=== PATIENT | male | born 1980 | race Hispanic/Latino ===

== ENCOUNTER 2025-09-01 15:23 | Emergency (ER) | payer SELFPAY ==
[~2025-09-01] VITALS: Ht 182.9 cm; Wt 112.5 kg
--- NOTE | 2025-09-01 15:33 | ERN ---
ED Note History of Present Illness Stated Complaint: ABDOMINAL PAIN Chief Complaint: Abdominal Pain Time Seen by MD: 15:28 Dictation: IS A 45-YEAR-OLD MALE COMING IN TODAY WITH COMPLAINTS OF EPIGASTRIC PAIN, BURNING FOR THE LAST 5-6 DAYS. HE STATES THERE WAS NO CHANGE WHEN HE EATS FOOD. NO FEVER NO CHILLS NO CHEST PAIN NO BACK PAIN. STATES HE WAS SEEN BY A DOCTOR ON A TELE CALL SEVERAL DAYS AGO AND WAS PRESCRIBED OMEPRAZOLE AND ZOFRAN WHICH IS NOT HELP. HE DENIES ANY ALCOHOL ABUSE NO HISTORY OF PANCREATITIS DIVERTICULITIS GASTROENTERITIS OR GERD. NOT SEEN HIS PRIMARY CARE DOCTOR. Allergies: Coded Allergies: No Known Drug Allergies (Unverified Allergy, Unknown, 09/01/25) Past Medical History RN Note Reviewed/Agreed w/PFSH: Yes Review of System Dictation CONSTITUTIONAL: NEGATIVE EXCEPT FOR HPI HEAD/FACE: NEGATIVE EXCEPT FOR HPI EENT: NEGATIVE EXCEPT FOR HPI RESPIRATORY: NEGATIVE EXCEPT FOR HPI GASTROINTESTINAL/ABDOMINAL: NEGATIVE EXCEPT FOR HPI EPIGASTRIC PAIN WITH NAUSEA GENITOURINARY: NEGATIVE EXCEPT FOR HPI MUSCULOSKELETAL: NEGATIVE EXCEPT FOR HPI INTEGUMENTARY: NEGATIVE EXCEPT FOR HPI NEUROLOGICAL/PSYCH: NEGATIVE EXCEPT FOR HPI HEMATOLOGIC/LYMPHATIC: NEGATIVE EXCEPT FOR HPI ALL SYSTEMS NEGATIVE, EXCEPT NOTED ABOVE. 13 POINT REVIEW OF SYSTEMS ASSESSED AND ALL NEGATIVE EXCEPT FOR ABOVE. Initial Vital Sign VS Vital Signs Date Time Temp Pulse Resp B/P (MAP) Pulse Ox O2 Delivery O2 Flow Rate FiO2 09/01/25 15:30 99.1 73 19 133/87 99 Room Air 0 09/01/25 16:40 21 Physical Exam Dictation VITAL SIGNS REVIEWED GENERAL APPEARANCE: ALERT, ORIENTED X 3, N MODERATE ACUTE DISTRESS, WELL DEVELOP ED, NOURISHED. HEAD AND FACE: NON-TRAUMATIC. EYES: PERRL, PINK CONJUNCTIVAS, EYELID NO TRAUMA, ANTERIOR CHAMBER WITH ARCUS SENILIS. EARS: PINNAS INTACT AND NO SIGNS OF TRAUMA OR ERYTHEMA EAR CANALS CLEAR AND NO DISCHARGE TM NO ERYTHEMA NOSE: NO DISCHARGE, NO BLEEDING. OROPHARYNX: MOUTH NORMAL, TONGUE PINK, PHARYNX CLEAR,NO ERYTHEMA, TONSILS NO EXUDATES, NO ABSCESSES NOTED, MUCOUS MEMBRANE MOIST NECK: SUPPLE, NON-TENDER, NO THYROMEGALY, NO MASSES, NO JVD, NO BRUITS BREAST:DEFERRED CHEST:NO TENDERNESS, NO CREPITUS, NO PARADOXICAL MOVEMENT, NO RETRACTIONS LUNGS:CLEAR, WELL-VENTILATED, SYMMETRIC, NO RALES, NO WHEEZING, NO RHONCHI, NO STRIDOR, GOOD BREATH SOUNDS BILATERALLY HEART: REGULAR RATE, REGULAR RHYTHM, NO MURMUR, NO GALLOPS VASCULAR: NO PERIPHERAL EDEMA, ABDOMEN: SOFT, POSITIVE BOWEL SOUNDS, MODERATE EPIGASTRIC TENDERNESS WITH PALPATION. PANCHAL'S/NEGATIVE REBOUND RECTAL: DEFERRED GENITAL: DEFERRED NEUROLOGICAL: NORMAL SPEECH, MOTOR FUNCTION INTACT, SENSORY FUNCTION INTACT MUSCULOSKELETAL: NECK NONTENDER, FULL RANGE OF MOTION, BACK NONTENDER, FULL RANGE OF MOTION, EXTREMITIES: NONTENDER, FULL RANGE OF MOTION SKIN: COLOR PINK, DRY, NO TURGOR, NO RASH, NO LACERATIONS, NO ABRASIONS, NO CONTUSIONS. LYMPHATIC: DEFERRED Results (Laboratory/Radiology) Laboratory/Radiology Laboratory Tests Test 09/01/25 15:37 09/01/25 15:48 Urine Color LIGHT-YELLOW (YELLOW) Urine Appearance CLEAR (CLEAR) Urine pH 6.5 (5.0-8.0) Urine Specific [place] 1.016 (1.001-1.031) Urine Protein NEGATIVE mg/dL (NEGATIVE) Urine Glucose (UA) NEGATIVE mg/dL (NEGATIVE) Urine Ketones NEGATIVE mg/dL (NEGATIVE) Urine Occult Blood NEGATIVE (NEGATIVE) Urine Nitrate NEGATIVE (NEGATIVE) Urine Bilirubin NEGATIVE mg/dL (NEGATIVE) Urine Urobilinogen 4.0 mg/dL (0.2-1.0) H Urine Leukocyte Esterase NEGATIVE Rupa/uL White Blood Count 17.9 K/uL (4.8-10.8) H Red Blood Count 5.43 MIL/uL (4.50-6.20) Hemoglobin 16.7 g/dL (14.0-18.0) Hematocrit 47.8 % (42-54) Mean Corpuscular Volume 88.0 fL (79-99) Mean Corpuscular Hemoglobin 30.8 pg (27.0-33.0) Mean Corpuscular Hemoglobin Concent 34.9 g/dL (32.0-36.0) Red Cell Distribution Width 12.8 % (11.0-15.5) Platelet Count 252 K/uL (130-400) Mean Platelet Volume 11.1 fL (7.5-10.5) H Immature Granulocyte % (Auto) 0.3 % (0-1) Neutrophils (%) (Auto) 36.0 % (40.0-77.0) L Lymphocytes (%) (Auto) 15.0 % (21.0-51.0) L Monocytes (%) (Auto) 3.5 % (3.0-13.0) Eosinophils (%) (Auto) 44.8 % (0.0-8.0) H Basophils (%) (Auto) 0.4 % (0.0-5.0) Neutrophils # (Auto) 6.4 K/uL (1.8-7.7) Lymphocytes # (Auto) 2.7 K/uL (1.0-4.8) Monocytes # (Auto) 0.6 K/uL (0.1-1.0) Eosinophils # (Auto) 8.01 K/uL (0.00-0.70) H Basophils # (Auto) 0.07 K/uL (0.00-0.20) Absolute Immature Granulocyte (auto 0.06 K/uL (0-1) Nucleated Red Blood Cells 0.0 % (0.0-0.19) White Cell Morphology Comment See comments Sodium Level 139 mmol/L (136-145) Potassium Level 3.5 mmol/L (3.5-5.1) Chloride Level 102 mmol/L (101-111) Carbon Dioxide Level 29 mmol/L (21-32) Blood Urea Nitrogen 8 mg/dL (7-18) Creatinine 1.1 mg/dL (0.5-1.3) Glomerular Filtration Rate Calc 85 mL/min (>90) Random Glucose 112 mg/dL (70-105) H Total Calcium 8.4 mg/dL (8.5-10.1) L Lipase 60 U/L (16-77) ADRENAL GLANDS: Unremarkable. KIDNEYS, URETERS, AND BLADDER: The kidneys appear within normal limits. There is no hydronephrosis or hydroureter. No urinary calculi are seen. Mild bladder wall thickening may reflect cystitis, recommend correlation with laboratory parameters. STOMACH AND BOWEL: Mildly dilated jejunal loops up to mid jejunal level with the prominent valvulae conniventes. The maximum caliber of the jejunum is 3.8 cms. The duodenum is mildly dilated. Ileal loops are not dilated The right colon is fecal filled, not dilated. Left colon is relatively collapsed APPENDIX: No evidence of acute appendicitis on CT examination. PERITONEUM: Mild to moderate free fluid in the abdomen. No free air. LYMPH NODES: No lymphadenopathy is evident. REPRODUCTIVE: Unremarkable as visualized. VASCULATURE: No evidence of abdominal aortic aneurysm. BONES: No aggressive appearing osseous lesion. No acute osseous pathology evident. IMPRESSION: 1. Mildly dilated jejunal loops up to mid jejunal level with prominent valvulae conniventes reflecting enteritis and an ileus, maximum caliber 3.8 cm. 2. Mild to moderate free fluid in the abdomen. 3. No evidence of acute appendicitis or other acute abdominal pathology. /[facility] Reviewed?: Yes ED Course ED Course Orders Procedure Category Date Status Time Cbc With Differential LAB 09/01/25 Complete 15:30 Urinalysis Profile LAB 09/01/25 Complete 15:30 0.9%Nacl 1000ml (Ns PHA 09/01/25 Complete 1000ml) 15:30 Morphine 2mg Syg PHA 09/01/25 Complete (Morphine 2mg Syg) 15:30 Ondansetron 4mg Inj PHA 09/01/25 Complete (Zofran 4mg Inj) 15:30 Pantoprazole 40mg Inj PHA 09/01/25 Complete (Protonix 40mg Inj 15:30 Lipase LAB 09/01/25 Complete 15:30 Basic Metabolic Panel LAB 09/01/25 Complete 15:30 Ct Abdomen/Pelvis CT 09/01/25 Resulted W/Contrast 16:17 Iohexol (Omnipaque) PHA 09/01/25 Complete 16:52 Current Medications Medications (Trade) Dose Ordered Sig/Halina Route PRN Reason Start Time Stop Time Status Last Admin Dose Admin Iohexol (Omnipaque) 35,000 mg STK-MED ONCE IV 09/01/25 16:52 09/01/25 16:52 DC Morphine Sulfate (morPHINE 2MG SYG) 2 mg ONCE ONCE IVP 09/01/25 15:30 09/01/25 15:44 DC 09/01/25 15:58 Ondansetron HCl (zoFRAN 4MG INJ) 4 mg ONCE ONCE IVP 09/01/25 15:30 09/01/25 15:44 DC 09/01/25 15:58 Pantoprazole Sodium (PROTonix 40MG INJ) 40 mg ONCE ONCE IVP 09/01/25 15:30 09/01/25 15:44 DC 09/01/25 15:58 Sodium Chloride 1,000 ml @ 0 mls/hr ONCE ONCE IV 09/01/25 15:30 09/01/25 15:44 DC 09/01/25 15:58 Vital Signs Date Time Temp Pulse Resp B/P (MAP) Pulse Ox O2 Delivery O2 Flow Rate FiO2 09/01/25 16:40 62 16 140/90 97 Room Air* 0 21 09/01/25 15:30 99.1 73 19 133/87 99 Room Air 0 1845/SPOKE TO PATIENT IN HIS AT LENGTH AT BEDSIDE. PATIENT DOES NOT WISH TO STAY IN THE HOSPITAL AT THIS TIME. I ADVISED HIM OF THE CT FINDINGS THAT INCLUDED POSSIBLE ILEUS HE STATES HE HAS ONLY VOMITED TWICE IN THE LAST SIX DAYS. HE STATES HE IS ALSO PASSING GAS IN HIS HAD A BOWEL MOVEMENT. I THEN ADVISED HIM I WOULD TREAT ENTERITIS WITH THE ANTIBIOTICS MEDICATIONS FOR MOTILITY AND PAIN SEE HIS DOCTOR WEDNESDAY AND FOLLOW BACK UP TO THE EMERGENCY ROOM IF UNABLE TO HOLD DOWN FOOD OR FLUIDS HE AND HIS AGREED. Medical Decision Making MDM MDM: DIFFERENTIAL DIAGNOSIS: APPENDICITIS/GASTROENTERITIS/PANCREATITIS/ELECTROLYTE IMBALANCE/COLITIS RATIONALE: TESTS CONSIDERED AND ORDERED SECONDARY TO SHARED DECISION MAKING INCLUDE: LABS/RADIOLOGY PREVIOUS OUTSIDE RECORDS REVIEWED: OLD ER VISITS. RISK OF COMPLICATION AND/OR MORBIDITY OR MORTALITY OF PATIENT MANAGEMENT: NONE MEDICATIONS-PER MEDICATION RECONCILIATION NEED FOR HOSPITALIZATION: PATIENT DOES NOT MEET CRITERIA FOR HOSPITALIZATION. PATIENT REFUSED ADMISSION AT THIS TIME. NEED FOR EMERGENCY MAJOR/MINOR SURGERY: NO THERE ARE NO SOCIAL CONCERNS WITH THIS PATIENT. PRESCRIPTION DRUG MANAGEMENT FLAGYL/BENTYL/REGLAN PRESCRIPTIONS WILL INCLUDE SYMPTOMATIC CARE PATIENT'S PRIOR EXTERNAL MEDICAL RECORDS FROM OTHER ER VISITS WERE REVIEWED BY ME INDICATED. PRIOR TESTING AND RESULTS FROM PREVIOUS VISITS WERE REVIEWED. PRIOR TESTS WERE TAKEN INTO ACCOUNT WITH MEDICAL DECISION MAKING AND RESOURCE UTILIZATION, INDEPENDENT HISTORIAN/HISTORIANS WERE USED TO OBTAIN COMPLETE MEDICAL HISTORY. I INDEPENDENTLY INTERPRETED THE TEST THAT WERE PERFORMED, RESULTS WERE REVIEWED BY ME AND CONSIDERED FINDINGS ON RADIOLOGY IF ORDERED. MEDICAL MANAGEMENT AND EXAMINATION INTERPRETATION DISCUSSIONS WERE HAD BY ME WITH OTHER QUALIFIED HEALTHCARE PROFESSIONALS INDICATED FOR THE PATIENT'S CARE. DX & DISP Disposition: Discharge Departure Impression: Primary Impression: Enteritis Additional Impressions: Hypocalcemia, Hyperglycemia, Nausea Condition: Stable Scripts Dicyclomine HCl (Bentyl) 20 Mg Tab 20 MG PO Q6HPRN for ABDOMINAL CRAMPS, #20 TAB Prov: KAUSHIK GALLEGO MARIEL 09/01/25 Metronidazole (Metronidazole) 250 Mg Tablet 1 TAB PO TID for 7 Days, #21 TAB 0 Refills Prov: KAUSHIK GALLEGO MARIEL 09/01/25 Ciprofloxacin HCl (Cipro) 500 Mg Tablet 1 TAB PO BID for 7 Days, #14 TAB 0 Refills Prov: KAUSHIK GALLEGO MARIEL 09/01/25 Additional Instructions: FOLLOW-UP WITH PRIMARY CARE PROVIDER IN 1 TO 2 DAYS. TAKE MEDICATIONS DIRECTED HERE IN THE EMERGENCY ROOM. OKAY TO CONTINUE HOME MEDICATIONS UNLESS OTHERWISE DISCUSSED DURING YOUR VISIT IN THE EMERGENCY ROOM TODAY. RETURN TO YOUR NEAREST EMERGENCY ROOM IF SYMPTOMS WORSEN OR IF THERE IS NO IMPROVEMENT. CALL 911 IF YOU NEED IMMEDIATE ASSISTANCE. TAKE TYLENOL OR MOTRIN [id number] NEEDED AND IF NO CONTRAINDICATIONS ARE PRESENT. INCREASE ORAL HYDRATION. A WOUND CULTURE OR URINE CULTURE WAS ORDERED HERE IN THE EMERGENCY ROOM DEPARTMENT PLEASE FOLLOW-UP WITH PRIMARY CARE PROVIDER AND ADVISE THEM TO GET REPEAT PORTS FROM OUR FACILITY. IF YOU HAD ANY TRUMAN WRAP/SPLINTS THAT WERE APPLIED HERE, PLEASE DO NOT REMOVE THEM UNTIL YOU SEE YOUR PRIMARY CARE OR SPECIALTY. TAKE ANTIBIOTICS DIRECTED UNTIL GONE. CLEAR LIQUID DIET UNTIL WEDNESDAY MORNING TO INCLUDE PEDIALYTE, , , GATORADE OR POWERADE SIPS EVERY 20 MINUTES WHILE AWAKE. SEE YOUR PRIMARY CARE DOCTOR MALL WEDNESDAY WITHOUT FAIL FOR FOLLOW UP AND MANAGEMENT. RETURN TO THE EMERGENCY ROOM IMMEDIATELY IF UNABLE TO HOLD DOWN FOOD OR FLUIDS. Time of Disposition: 18:46 I have reviewed the case, and I agree with, Diagnosis and Plan KAUSHIK GALLEGO Chelsea FLOYD Sep 01, 2025 15:33
[2025-09-01 15:49] LABS: APPEARANCE,URINE CLEAR (CLEAR); GLUCOSE, URINE (UA) NEGATIVE (NEGATIVE); LEUKOCYTE ESTERASE ,URINE NEGATIVE Leu/uL (NEGATIVE); NITRATE,URINE NEGATIVE (NEGATIVE); OCCULT BLOOD,URINE NEGATIVE (NEGATIVE)
[2025-09-01 15:50] LABS: ADD UA MICROSCOPIC NO
[2025-09-01] MEDS: 0.9%NACL 1000ML 1,000 ML IV ONE (15:58)
[2025-09-01 16:03] LABS: IMMATURE GRANULOCYTE ABSOLUTE 0.06 K/uL (0-1); NUCLEATED RED BLOOD CELLS 0.0 % (0.0-0.19); PLATELET COUNT (AUTO) 252 K/uL (130-400); RED BLOOD CELL COUNT(AUTO) 5.43 MIL/uL (4.50-6.20); RED CELL DISTRIBUTION WIDTH 12.8 % (11.0-15.5); WHITE BLOOD COUNT (AUTO) 17.9 K/uL (4.8-10.8)
[2025-09-01 16:16] LABS: CREATININE 1.1 mg/dL (0.5-1.3); GLOMERULAR FILTR. RATE CALC 85.0 mL/min (>90); GLUCOSE,RANDOM 112.0 mg/dL (70-105); SODIUM SERUM 139.0 mmol/L (136-145); UREA NITROGEN, BLOOD 8.0 mg/dL (7-18)
[2025-09-01] MEDS ORDERED: IOHEXOL 350 MG/ML 100ML INFUS..BTL IV ONE (16:52)
--- NOTE | 2025-09-01 17:30 | NUR ---
REPORT RECEIVED FROM ARLEN GROSS. PATIENT CARE ASSUMED AT THIS TIME.
--- NOTE | 2025-09-01 18:24 | HMCIMG ---
EXAM: CT Abdomen and Pelvis with IV contrast CLINICAL HISTORY: PERIUMBILICAL PAIN WITH NAUSEA TECHNIQUE: Axial computed tomography images of the abdomen and pelvis with intravenous contrast. CONTRAST: with intravenous contrast. COMPARISON: None provided. FINDINGS: LUNG BASES: The lung bases appear clear. No pleural effusions are seen. LIVER: Unremarkable. GALLBLADDER AND BILE DUCTS: The gallbladder appears within normal limits. No radioopaque gallstones are seen. No biliary ductal dilatation is evident. PANCREAS: Unremarkable. SPLEEN: Unremarkable. ADRENAL GLANDS: Unremarkable. KIDNEYS, URETERS, AND BLADDER: The kidneys appear within normal limits. There is no hydronephrosis or hydroureter. No urinary calculi are seen. Mild bladder wall thickening may reflect cystitis, recommend correlation with laboratory parameters. STOMACH AND BOWEL: Mildly dilated jejunal loops up to mid jejunal level with the prominent valvulae conniventes. The maximum caliber of the jejunum is 3.8 cms. The duodenum is mildly dilated. Ileal loops are not dilated The right colon is fecal filled, not dilated. Left colon is relatively collapsed APPENDIX: No evidence of acute appendicitis on CT examination. PERITONEUM: Mild to moderate free fluid in the abdomen. No free air. LYMPH NODES: No lymphadenopathy is evident. REPRODUCTIVE: Unremarkable as visualized. VASCULATURE: No evidence of abdominal aortic aneurysm. BONES: No aggressive appearing osseous lesion. No acute osseous pathology evident. IMPRESSION: 1. Mildly dilated jejunal loops up to mid jejunal level with prominent valvulae conniventes reflecting enteritis and an ileus, maximum caliber 3.8 cm. 2. Mild to moderate free fluid in the abdomen. 3. No evidence of acute appendicitis or other acute abdominal pathology. /[facility]
[2025-09-01] MEDS ORDERED: DICY20TA2 PO (18:47)
[2025-09-01] MEDS ORDERED: CIPR-278 PO (18:47)
[2025-09-01] MEDS ORDERED: METR-361 PO (18:47)
[2025-09-01 19:29] VITALS: BP 134/74; PULSE 84; RESP 18; TEMP 98.5; O2SAT 98
== END 2025-09-01 19:31 | disposition home or self-care (01) ==
LOC: EDH 15:23
DX: K52.9 Noninfective gastroenteritis and colitis, unspecified (principal); E83.51 Hypocalcemia; R73.9 Hyperglycemia, unspecified; R11.0 Nausea
CPT/HCPCS: 99285; 96365; 74177; 96375; 96361; 80048; 83690; 85025; 81003; 36415; J2270; J7030; J0696; J2405; J2470; Q9967